=== PATIENT | female | born 1960 | race Caucasian/White ===

== ENCOUNTER 2017-01-10 20:05 | Observation (INO) | payer MEDICAID ==
[~2017-01-10] VITALS: Ht 165.1 cm; Wt 65.8 kg
[~2017-01-10 20:05] MED LIST: ACTOS30 MG PO; ALBUTEROL-200 PUFFS/ IH; AMLO5TAB PO; CIPRO 500MG TA500 MG PO; CYCLOBENZAPRINE10 MG PO; FENTANYL 1100 MCG/E1 TD; FENTANYL TR75 MCG/HR TD; FLEXERIL10 MG PO; FLOMAX 0.4MG C0.4 MG PO; HUMALOG100 U/ML SC; JANUVIA100 MG PO; KEFLEX 500MG.500 MG PO; LANTUS INS100 UNITS/ SC; MEDROL 4MG. DOSE4 MG PO; METFORMIN1000 MG PO; MIRALAX17 GM/PACK PO; NIASPAN1000 MG PO; NOVOLOG100 U/ML SC; OXYCODONE15 MG PO; PAROXETINE40 MG PO; PERCOCET 10 MG1 EACH PO; PHENERGAN 25MG.25 M1 PO; PREDNISONE50 MG PO; PREGABALIN 50MG50 MG PO; REGLAN 10 MG TA10 MG PO; SIMVASTATIN80 MG PO; TESSALON PERLE100 MG PO; ZOCOR40 MG PO; ZOFRAN4 MG PO
[2017-01-10 20:11] VITALS: BP 152/76
[2017-01-10 20:30] LABS: LYMPH # 2.8 K/mm3 (0.7-4.5); LYMPH % 37.7 % (10-50.0)
[2017-01-10 20:32] LABS: HEMOGLOBIN 14.2 g/dL (12.2-16.2)
[2017-01-10 20:38] LABS: AMPHETAMINES/METAMPHETAMINES NEGATIVE ng/mL (<1000)
--- NOTE | 2017-01-10 21:16 | Emergency Room Report ---
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 N Clinical Suspician of Infection? N Mental Status: 2 - Mildly Altered Sepsis Risk:Low Sepsis Risk Have you (or family members/close friends) recently traveled outside the [place]? N If Yes, where/when: Have you had exposure to infectious disease within the past month? N TB? Other? Specify: Comment History of slipped from the patient's daughter and boyfriend and minimally from the patient. Her boyfriend states that for 3 days she has had a pain in her side and pain with urinating. He says that today she went to lay down and 3 hours later he checked on her and could not arouse her and called 911 immediately. She was given Narcan during transport and her mental status improved. She again became drowsy in the emergency room and required 2 more milligrams of Narcan prior to my evaluation. Her drug screen has already been resulted and shows opiates and cocaine. Her boyfriend states that she is not currently on any prescription pain medication although she has been on Percocet/oxycodone past. He has never seen her used cocaine and does not know of any street drug abuse. 9:30 PM: The patient is drowsy and yawning, but able answer some questions. She says that she is not on any prescription pain medications, but will occasionally take a pain pill that she obtains off of the street when she is hurting. She says that today she is hurting in her suprapubic area and has difficulty urinating, pain with urination. She says she has a history of kidney infections and kidney stones. She does admit to using cocaine as well. ALLERGIES Coded Allergies: acetaminophen (From LORTAB) (10/18/15) hydrocodone (From LORTAB) (10/18/15) Home Medications Reported Medications Amlodipine Besylate (Amlodipine) 5 MG PO DAILY PIOGLITAZONE HCL (Actos 30MG) 30 MG PO DAILY-DM Niacin (Niaspan) 1,000 MG PO DAILY PAROXETINE HCL (Paroxetine) 40 MG PO DAILY Insulin Glargine (Lantus Insulin Vial) 75 UNITS SC DAILY Simvastatin (Zocor) 40 MG PO QHS METFORMIN HCL (Metformin) 1,000 MG PO DAILY Insulin Lispro, Recombinant (Humalog 100 UNITS/ML 10ML) 0 UNITS SC ACHS Pregabalin (Pregabalin 50MG Capsule) 50 MG PO BID #60 History Medical History General CAD? No Angina: No [place]: Yes Hypertension? No Hyperlipidemia? Yes CHF? No DVT? No PE? No COPD? Yes Asthma? Yes Anemia? Yes GERD? No Gastric ulcers? No GI Bleed? No Hernia? Yes Thyroid Problems? No Hypothyroidism? No CVA? Yes Seizures? No Diabetes? Yes Insulin Dependent: Yes Insulin Pump: No Home FSBS? No Renal Insuffiency? No End Stage Renal Disease? No UTI? Yes Stones? No BPH? No GB Disease: Yes Nephritic Syndrome? No Asplenia? No Hepatitis? No Sickle Cell Disease? No Arthritis? Yes Migraines? Yes Cataracts? No Glaucoma? No MRSA? Yes HIV? No TB? No Anxiety? No Depression? 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 Hx LMP menopause Family History Family Hx Diabetes Yes CAD Yes Hypertension Yes Hyperlipidemia Yes Cancer Yes TB No Social History Smoking Hx Smoker: Current Every Day Smoker Tobacco: Yes Type Cigarettes Packs/day < 1 Pack Alcohol Alcohol: No Review of Systems All Other Systems Reviewed and Negative (unobtainable due to AMS) Physical Exam Vital Signs Vital Signs Date Time Temp Pulse Resp B/P Pulse O2 O2 Flow FiO2 Ox Delivery Rate 01/11 0012 98.8 87 20 105/61 94 2 01/10 2335 98.8 88 20 147/59 92 01/10 2228 87 20 115/63 97 2 01/10 2147 96 20 157/77 96 01/10 2113 96 20 184/88 98 01/10 2110 99.1 97 20 137/99 97 2 01/10 2055 100 20 104/77 98 2 01/10 2050 98.2 95 20 109/58 98 2 01/10 2041 81 20 116/71 96 01/10 2011 98.2 84 20 152/76 95 - WBC >12,000 or <4,000 or 10% bands? 2 or more SIRS Criteria Met? B/P:184/ MAP:101 Creatinine >2.0? UA output<0.5ml/kg/hr for 2 hrs? Platelet count >100,000? Lactate >2.0mmol/1? INR >1.2 or PTT > than 60 sec? Evidence of Organ Dysfunction? Provider documented clinical suspician of infection? N Sepsis Criteria Count: 1 Sepsis Risk: Low Sepsis Risk General Appearance drowsy, yawning, restless Eye Exam - bilateral eye normal exam, bilateral eye PERRL, bilateral eye EOMI Ear, Nose, Throat hearing grossly normal, normal ENT inspection Neck normal inspection, non-tender, supple, full range of motion Respiratory Status Yes: trachea midline, chest symmetrical, non tender chest. No: respiratory distress. Lung Sounds bilateral: normal breath sounds, lungs clear. 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 No Saravanan was queried for this patient? Yes Reference #: [id number] Comment 9 rxs. last rx 75 oxycodone 5mg on 04/22/16. Results/Orders Laboratory Tests 01/10/17 2010: Opiates Screen POSITIVE H, Urine Methadone Screen NEGATIVE, Barbiturates NEGATIVE, Phencyclidine Screen NEGATIVE, Amphetamines Screen NEGATIVE, Benzodiazepines Screen NEGATIVE, Cocaine Screen POSITIVE H, Marijuana (THC) Screen NEGATIVE, Urine Color YELLOW, Urine Appearance CLEAR, Urine pH 6.5, Ur Specific [place] 1.010, Urine Protein NEGATIVE, Urine Ketones NEGATIVE, Urine Blood 3+ H, Urine Nitrate NEGATIVE, Urine Bilirubin NEGATIVE, Urine Urobilinogen 0.2, Ur Leukocyte Esterase NEGATIVE, Urine RBC 10-20, Ur Squamous Epith Cells 3-5, Amorphous Sediment TRACE, Urine Glucose NEGATIVE 01/10/171999: Creatine Kinase 212 H, CK-MB (CK-2) Rel Index 1.4, CK and CKMB Interp 2.9, Troponin I 0.02 01/10/171999: Sodium 141, Potassium 3.5, Chloride 106, Carbon Dioxide 28, BUN 11, Creatinine 0.8, Estimated Creat Clear 92, Estimated GFR (MDRD) 75, Glucose 118 H, Calcium 9.2, Total Bilirubin 0.4, AST 25, ALT 32, Alkaline Phosphatase 98, Total Protein 6.9, Albumin 3.3 L, Globulin 3.6 H, Albumin/Globulin Ratio 0.9 L, WBC 7.4, RBC 4.32, Hgb 14.2, Hct 39.7, MCV 91.9, RDW 12.6, Plt Count 164, MPV 7.0 L, Gran % 54.7, Gran # 4.0, Lymphocytes % 37.7, Monocytes % 5.4, Eosinophils % 1.6, Basophils % 0.7, Lymphocytes # 2.8, Monocytes # 0.4, Eosinophils # 0.1, Basophils # 0.1, PUBS MCHC 35.7 H, MCH 32.8 H, Salicylates 4.3, Acetaminophen 0 L Current Medication Orders Sig/Haylee Start time Last Medication Dose Route Stop Time Status Admin Diagnostic Test (Pha) 1 EACH W/MEALS&HS 01/11 07 UNV FS 03/12 0659 Insulin Human [rDNA See Dose W/MEALS&HS 01/11 07 UNV origin] Insts (1) SC Nicotine 21 MG DAILYP PRN 01/11 0005 UNV TD Ondansetron HCl 4 MG Q6HP PRN 01/11 0005 UNV IV Sodium Chloride 1,000 ML .Q8H 01/11 0005 UNV IV Sodium Chloride 10 ML PRN PRN 01/11 0005 UNV IV Naloxone HCl 2 MG PRN PRN 01/11 0000 UNV IV Ketorolac 30 MG ONCE ONE 01/10 2215 DC Tromethamine IV 01/11 2216 Naloxone HCl 2 MG ONCE ONE 01/10 2100 DC 01/10 IV 01/10 Naloxone HCl 2 MG 01/10 2045 UNi IV Naloxone HCl 0 .STK-MED ONE 01/10 2043 DC .ROUTE Sodium Chloride 10 ML PRN PRN 01/10 2030 AC 01/10 IV 01/11 Dose Instructions: (1)Insulin Human [rDNA origin]: SEE ADMIN CRITERIA FOR LOW INTENSITY SS Orders Procedure Date/time Status DIET-NOTHING BY MOUTH 01/12 B Active CODE STATUS 01/11 0700 Active ADMIT PATIENT 01/11 UNK Active PULSE OXIMETRY REQUEST 01/11 UNK Active OXYGEN REQUEST 01/[address] ABD/PELVIS REQ 01/11 UNK Active VITAL SIGNS 01/11 UNK Active 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 NURSE BARBI HOSE ORDER 01/11 UNK Active IV SALINE LOCK 01/11 UNK Active PATIENT ACTIVITY ORDER 01/11 UNK Active Urine, Strain 01/11 UNK Active Neuro Status, Assess 01/11 UNK Complete Decision to admit 01/10 2340 Active KUB (SINGLE VIEW) 01/11 2212 Active CARDIAC ENZYMES 01/11 2132 Complete ELECTROCARDIOGRAM REQUEST 01/10 2131 Active URINALYSIS/COMPLETE 01/10 2131 Complete IV SALINE LOCK 01/11 2016 Active SALICYLATE 01/11 2016 Complete DRUG ABUSE SCREEN (TRIAGE) 01/11 2016 Complete CBC WITH AUTO DIFF 01/11 2016 Complete CHEM 12 PROFILE 01/11 2016 Complete Acetaminophen 01/11 2016 Complete 12 LEAD EKG-BESSON (INITIAL) 01/10 UNK Active CM/EKG CM/EKG Comments EKG interpreted by Hong Shi MD: Rhythm: sinus Rate: 94 [place]: normal Ectopy: none Conduction: normal ST Segment Changes: none T Wave Changes: none Q Waves: none No evidence of acute ischemia or injury XRAY/CT/US XRAY/CT/US XRAY abdomen Comment X-ray interpreted by Hong Shi M.D.: 3 circular calcifications above the LEFT SI joint, possible ureteral calculi Progress - CT scanner is non-operational at this time until tomorrow. I suspect ureteral calculus based on symptoms, KUB, and hematuria. 11:15 PM: I have discussed the case with Dr. Fowler for Dr. Jaeger who agrees to admit the patient to the hospital. We discussed the patient's clinical information, including history, exam, laboratory and radiology results and ED course. Per hospital procedure, I will write temporary bridge inpatient orders on the patient. Specific orders requested by the admitting physician: Hydration, telemetry. Departure Departure Disposition Still a Patient Clinical Impression Primary Impression: Accidental drug overdose Qualifiers: Encounter type: initial encounter Qualified Code: T50.901A - Poisoning by unspecified drugs, medicaments and biological substances, accidental (unintentional), initial encounter Secondary Impressions: Left ureteral calculus Condition STABLE Referrals ELPIDIO THOMAS (Family) ED Critical Care Critical Care Yes Time spent 30-74 min Vital system(s) involved: Central Nervous System I was present at bedside for Coordinating pt's care, Interpreting EKGs/Strips , During my initial exam, Reviewing lab results, Reviewing old records, Discussing pt condition, For re-examinations, Examining radiographs at 0045
[2017-01-10 21:48] LABS: URINE BILIRUBIN - DIPSTICK NEGATIVE (NEG); URINE BLOOD 3+ (NEG)
[2017-01-11] VITALS (9 sets, daily range): BP systolic 106–147; BP diastolic 60–83
[2017-01-11] MEDS ORDERED: JANUVIA100 MG PO (00:57)
[2017-01-11] MEDS ORDERED: ASPIRIN 81MG TA81 MG PO (00:58)
[2017-01-11] MEDS ORDERED: AMLODIPINE5 M1 PO (01:09)
[2017-01-11] MEDS ORDERED: SIMVASTATIN10 MG PO (01:12)
[2017-01-11] MEDS ORDERED: CARVEDILOL6.25 M1 PO (01:18)
[2017-01-11] MEDS ORDERED: ATORVASTATIN CA80 MG PO (01:19)
[2017-01-11] MEDS ORDERED: NAPROSYN500 M1 PO (01:20)
[2017-01-11] MEDS ORDERED: METOCLOPRAMIDE10 M2 PO (01:21)
[2017-01-11] MEDS ORDERED: TIZANIDINE HCL 44 MG NG (01:22)
[2017-01-11] MEDS ORDERED: METHOCARBAMOL500 MG PO (01:23)
[2017-01-11] MEDS ORDERED: APAP/OXYCODONE1 TA1 PO (01:24)
--- NOTE | 2017-01-11 07:36 | HISTORY AND PHYSICAL REPORT ---
Demographics: Admit date: 01/10/17 Chief complaint: Mental status change PRIMARY DIAGNOSIS: DRUG OD; LT URETERAL CALCULUS Allergies: Coded Allergies: acetaminophen (From LORTAB) (10/18/15) hydrocodone (From LORTAB) (10/18/15) History of present illness: History of present illness: 56-year-old white female with history of polysubstance abuse who was brought to the emergency department by her boyfriend because "she wouldn't wake up." She was given Narcan in route by EMS which improved her situation temporarily but then received another dose of Narcan in the emergency department. This improved her breathing situation but she was still very somnolent but arousable to deep tactile stimuli and verbal stimuli. Workup in the ER included a urine sample that showed opioids and cocaine, and labs that showed essentially normal metabolic testing except for mild hyperglycemia. KUB showed evidence of stone disease in the RIGHT urinary tract and she had hematuria. She was admitted to hospital for monitoring after polysubstance drug overdose, and further evaluation of her urinary tract issues. This morning she is more awake. Overnight we have had to place a Bess catheter for urinary retention and 1.5 L so far has been drained from her bladder. She continues to have mild abdominal pain but has had no vomiting. Past medical history: Family HX Diabetes Yes CAD Yes Hypertension Yes Hyperlipidemia Yes Cancer Yes TB No Immunization HX DT/Tetanus Unknown Flu THIS YR Pneumonia Unknown TB Test in last year No General CAD? No Angina: No [place]: Yes Hypertension? No Hyperlipidemia? Yes CHF? No DVT? No PE? No COPD? Yes Asthma? Yes Anemia? Yes GERD? No Gastric ulcers? No GI Bleed? No Hernia? Yes Thyroid Problems? No Hypothyroidism? No CVA? Yes Seizures? No Diabetes? Yes Insulin Dependent: Yes Insulin Pump: No Home FSBS? No Renal Insuffiency? No UTI? Yes Stones? No BPH? No GB Disease: Yes Nephritic Syndrome? No Asplenia? No Hepatitis? No Sickle Cell Disease? No Arthritis? Yes Migraines? Yes Cataracts? No Glaucoma? No MRSA? Yes HIV? No TB? No Anxiety? No Depression? 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 Additional hx: NERVE BURNT ON SPINE SEP 31 Past Surgical HX Previous Surgery?Y Gallbladd SHYANNE DISCECTOMY FOR L4 HEART CATH 2007 Current home meds: Reported Medications Sitagliptin Phosphate (Januvia 100MG) 100 MG PO DAILY #30 ASPIRIN (Aspirin) 81 MG PO DAILY Amlodipine Besylate (Amlodipine) 5 MG PO DAILY Simvastatin 10 MG PO NIGHT ONLY Carvedilol 6.25 MG PO BID #60 Atorvastatin Calcium 80 MG PO NIGHT ONLY #30 Naproxen (Naprosyn 500MG Tab) 500 MG PO BID METOCLOPRAMIDE HCL (Metoclopramide 10MG) 10 MG PO ACHS TIZANIDINE HCL (Tizanidine Hcl 4 Mg Tablet) 4 MG NG DAILY METHOCARBAMOL (Methocarbamol) 750 MG PO TID PRN MUSCLE SPASMS OXYCODONE 5MG/[id number] (Oxycodone-Acetaminophen 5-325) 1 TAB PO BID PRN POST-OP PAIN PAROXETINE HCL (Paroxetine) 40 MG PO DAILY Insulin Glargine (Lantus Insulin Vial) 75 UNITS SC DAILY Insulin Lispro, Recombinant (Humalog 100 UNITS/ML 10ML) 0 UNITS SC ACHS Pregabalin (Pregabalin 50MG Capsule) 50 MG PO BID #60 Social Hx: Smoking HX Tobacco No Type Cigarettes Packs/day < 1 PACK Alcohol Alcohol: No Hx of Drug Use Drug Use? Yes Drug(s) of Choice: cocaine, denies IV drugs, multiple by mouth medications Patien't marital status is single Patient's support system is poor Review of systems: Constitutional malaise, weakness. Respiratory No: no symptoms reported. Cardiovascular No no symptoms reported Gastrointestinal/Abdominal see HPI Genitourinary see HPI. Musculoskeletal No: no symptoms reported. Neurological Yes: see HPI. Exam: Lab data for last 24 hours: Laboratory Tests 01/11/17 0631: POC Glucose 101 01/10/17 2010: Opiates Screen POSITIVE H, Urine Methadone Screen NEGATIVE, Barbiturates NEGATIVE, Phencyclidine Screen NEGATIVE, Amphetamines Screen NEGATIVE, Benzodiazepines Screen NEGATIVE, Cocaine Screen POSITIVE H, Marijuana (THC) Screen NEGATIVE, Urine Color YELLOW, Urine Appearance CLEAR, Urine pH 6.5, Ur Specific [place] 1.010, Urine Protein NEGATIVE, Urine Ketones NEGATIVE, Urine Blood 3+ H, Urine Nitrate NEGATIVE, Urine Bilirubin NEGATIVE, Urine Urobilinogen 0.2, Ur Leukocyte Esterase NEGATIVE, Urine RBC 10-20, Ur Squamous Epith Cells 3-5, Amorphous Sediment TRACE, Urine Glucose NEGATIVE 01/10/171999: Creatine Kinase 212 H, CK-MB (CK-2) Rel Index 1.4, CK and CKMB Interp 2.9, Troponin I 0.02 01/10/171999: Sodium 141, Potassium 3.5, Chloride 106, Carbon Dioxide 28, BUN 11, Creatinine 0.8, Estimated Creat Clear 92, Estimated GFR (MDRD) 75, Glucose 118 H, Calcium 9.2, Total Bilirubin 0.4, AST 25, ALT 32, Alkaline Phosphatase 98, Total Protein 6.9, Albumin 3.3 L, Globulin 3.6 H, Albumin/Globulin Ratio 0.9 L, WBC 7.4, RBC 4.32, Hgb 14.2, Hct 39.7, MCV 91.9, RDW 12.6, Plt Count 164, MPV 7.0 L, Gran % 54.7, Gran # 4.0, Lymphocytes % 37.7, Monocytes % 5.4, Eosinophils % 1.6, Basophils % 0.7, Lymphocytes # 2.8, Monocytes # 0.4, Eosinophils # 0.1, Basophils # 0.1, PUBS MCHC 35.7 H, MCH 32.8 H, Salicylates 4.3, Acetaminophen 0 L Admission vital signs: 1ST Vital Signs Result Date Time Pulse Ox 95 01/10 2011 B/P 152/76 01/10 2011 Temp 98.2 01/10 2011 Pulse 84 01/10 2011 Resp 20 01/10 2011 O2 Flow Rate 2 01/10 2050 O2 Delivery OXYGEN 01/11 0046 Additional information: Patient is sleeping but arousable. Oriented 2, but a little fuzzy about the date but able to be reoriented. Cranial nerves intact. Lungs clear bilaterally, heart rate regular. Abdomen is soft, minimal bilateral lower quadrant tenderness without rebound or guarding or flank pain. She has no edema or clubbing. No stigmata of IV drug use or skin breakdown, wounds or trauma. Plan: Problem List 1. Accidental drug overdose 2. Left ureteral calculus Plan: Patient with polysubstance abuse. IV fluids. Cardiac monitoring. Electrocardiogram monitoring. Ativan for agitation or any kind of seizure activity as ordered. Urinary retention issues are noted. Begin antibiotic therapy, and CT scan available will scan for stone protocol. Clear liquid diet, advance as tolerated. at 0707
--- NOTE | 2017-01-11 08:29 | RADIOLOGY REPORT PS360 ---
KUB (SINGLE VIEW) Ordering Physician: Manny Jaeger MD Patient Age: 56 years: Female HISTORY: lower abdo and flank pain, hematuriahematuria TECHNIQUE: SupineAbdomen KUB COMPARISON. Prior KUB 03/21/2010 & more important CT abdomen October 2015 FINDINGS . Nonspecific bowel gas pattern.No significant bowel dilatation or obstruction Small bowel: Moderate gas throughout the proximal small bowel left abdomen. Large bowel.: Moderate stool and gas most evident at the right colon with minimal stool and gas throughout the remainder the colon. 3 small round calcifications in a row seen just superior to left SI joint, to left at L5. Largest of these measures nearly 3.5 mm diameter transverse; & the other only very incrementally smaller.. Although These were not seen on a previous 2009 KUB. They WERE present on the October 2015 CT shown to be phleboliths on that exam residing anterior to the tiny normal caliber left ureter.. No ureteral calculi or renal calculi were seen on that last year CT either.. Only some intermediate density most likely benign cystsat right kidney, which would benefit from follow-up CT when available if there is history of hematuria. Urinary bladder appears moderately distended. Clips right upper quadrant from cholecystectomy. Osseous: Incidental note prominent degenerative facet changes L5/S1 bilateral [right -------IMPRESSION: 1. Nonspecific bowel gas pattern Generous gas throughout the small bowel left abdomen but no bowel dilatation 2. There are 3 small round calcifications just above the left SI joint observed. These are compatible with PHLEBOLITHS based on prior CT October 2015.. They were present on that prior CT study and more clearly anterior to the normal size left ureter. Thus do NOT appear to be ureteral calculi No renal or ureteral calculi were seen on last years CT either
--- NOTE | 2017-01-11 08:56 | PHARMACY CLINIC NOTE ---
Patient Demographics Patient Demographics Admission date: 01/11/17 Date: 01/11/17 Time: 0855 Allergies Coded Allergies: acetaminophen (From LORTAB) (10/18/15) hydrocodone (From LORTAB) (10/18/15) HEIGHT- FT: 5 IN: 5.00 K.800 VTE General Information Labs: Laboratory Tests 01/11 2000 Hematology Hgb (12.2 - 16.2 g/dL) 14.2 Hct (37.0 - 47.0 %) 39.7 Plt Count (142 - 424 K/mm3) 164 Disclaimer The following section includes nursing documentation that has been pulled in for pharmacy review. Patient's VTE score: 6 Patient's VTE Risk: MOD RISK Clinical trial participant? No VTE prophylaxis NQF [id number] VTE prophylaxis ordered? Yes Type of prophylaxis/treatment: BARBI at 0856
[2017-01-11 17:29] LABS: URINE BILIRUBIN - DIPSTICK NEGATIVE (NEG); URINE BLOOD 3+ (NEG)
--- NOTE | 2017-01-11 23:13 | RADIOLOGY REPORT PS360 ---
CT ABD PELVIS W/ CONTRAST Ordering Physician: Manny Fowler MD Patient Age: 56 years: Female HISTORY: URINARY RETENTIONabdominal pain TECHNIQUE: Helical CT scanning performed the abdomen and pelvis following 75 cc [id number]. Scanning performed 60 seconds post contrast as well as 10 minute delayed to further evaluate the collecting systems, ureters and bladder FINDINGS There is a previous CT abdomen pelvis from October 2015 uses comparison Lung bases with no acute findings. Small focal pleural-based density at the posterior aspect of the posterior sulcus is measures 7.5 mm. Most likely area area of postinflammatory scarring and/or atelectasis but was not seen previously would benefit from follow-up.. There are other areas of linear atelectasis at the posterior sulcus. Borderline airway thickening of floor lobes bilateral. Abdomen. Liver.:. Scattered granulomatous calcifications but no significant mass nor worrisome focal lesion. There is a low-density area adjacent to the fissure ligamentum teres./falciform ligament insertion. Most likely focal fatty change here. Likely is more evident today postcontrast. Commonly occurs here. Gallbladder is been removed. Mild biliary ductal dilatation most likely reflecting postcholecystectomy changes. This includes some mild dilatation of the hepatic biliary radicles of this warrants correlation with serum bilirubin. I believe is similar to previous studies but more evident again postcontrast. Spleen. Normal size. .. Less and 12 cm lengthGranulomatous calcifications Pancreas. Unremarkable. Adrenals satisfactory. TRACT KIDNEYS. Normal enhancement bilaterally with scattered small benign cyst right> left kidney... Not of significant concern and fairly stable since prior studies. Can be followed. There are some cyst upper normal in density but I believe but overall fairly stable since 2016, but much better seen today postcontrast. No hydronephrosis. No urinary tract calculi. Minimal scarring upper pole left kidney. Ureters: appear normal course & caliber bilaterally. No obstructive uropathy or discrete ureteral calculi evident. There are numerous scattered very faint & tiny tiny calcifications adjacent to the course of the left left pelvic ureter but these appear to be stable since prior noncontrast studies 2015 and 2014-reflecting mesenteric calcifications and phleboliths adjacent to the ureter. As discussed on yesterday's study the small 2 or 3 calcifications just above Left SI joint are phleboliths. -Urinary Bladder. Bess catheter in place. Bladder upper normal wall thickness. Generous amount of air in the bladder.- Presumably iatrogenic from the Bess catheter placement but surprised the amount of air in it remains if this catheter was placed an yesterday.. I question slight hazy appearance overlying the posterior left aspect of urinary bladder. Requires correlation to urinalysis to exclude urinary tract infection. . Pelvis. Previous hysterectomy. No Adnexal masses. GI TRACT. Starting distally.-Question mild wall thickening angle verge, but appearance to studies dating back to 2014 thus may be long-standing feature. Upper normal wall thickness perirectal fascial plane is also some thousand 15. Large bowel. Moderate stool right, transverse and descending colon.. There is some liquid stool seen at the cecum otherwise solid stool throughout Diverticulosis most pronounced throughout sigmoid colon with upper normal wall thickness in this region. Possibly developing colitis No focal definitive inflamed diverticuli,. However the hazy appearance just posterior to the left bladder is just below the mildly thickened sigmoid colon and can be reflection of colitis. Nonspecific. Subtle. Small bowel: Increased fluid and slight dilatation small bowel loops most evident left abdomen. Scattered moderate air-fluid level. May reflect mild ileus. 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 Gas-filled small bowel loop measuring nearly nearly 2.5 cm coronal image 25.. . Generous caliber fluid filled secondary portion of duodenum measuring up to 3 cm also noted The terminal ileum and appendix appear within normal limits... Unremarkable Osseous structures. There is again irregularity at the inferior aspect of L4 vertebral body endplate. Likely related to Schmorl's node formation but cannot exclude old process here. L4/5 with generous disc bulge and facet hypertrophy which does narrow the spinal canal with developing spinal stenosis at this level. L5/S1. Generous central disc bulge most evident to the right of midline. With facet hypertrophy features stable since prior studies. . IMPRESSION: 1. No urinary tract obstruction. No renal nor ureteral calculi. No significant renal mass. Only scattered benign-appearing cyst kidneys- no worrisome mass. ( If hematuria persists unexplained suggest follow-up CT with contrast protocol in 6 months 2. Bess catheter in place. Generous wall thickness bladder. Prominent air bladder presumably iatrogenic 3. Otherwise with only note/question subtle hazy appearance fat posterior to the left aspect urinary bladder &, just below the sigmoid colon. Minor feature of Questionable significance But noted Cystitis considered, although mild adjacent colitis in the redundant sigmoid colon could yield this appearance. 4. Diverticulosis most pronounced in sigmoid colon. No discrete inflamed diverticuli. Mild wall thickening sigmoid possibly could reflect developing colitis. Correlation required 5. Also note Small bowel with generous fluid & gas here at the left abdomen. May reflect mild ileus. Nonspecific. Unimpressive. Less likely early enteritis. 6. Notable Degenerative changes L4/5 L5/S1 . Developing spinal stenosis L4/5 7. Small 7.5 mm pleural-based nodular density right lung base/ posterior sulcus, most likely related to atelectasis & postinflammatory scarring.
[2017-01-12 04:05] VITALS: BP 141/88; BP 144/83
[2017-01-12 06:58] LABS: HEMOGLOBIN 12.9 g/dL (12.2-16.2); LYMPH # 1.9 K/mm3 (0.7-4.5); LYMPH % 32.4 % (10-50.0)
--- NOTE | 2017-01-12 07:51 | ACUTE CARE PROGRESS NOTE (QUA) ---
Progress Notes Subjective Date 01/12/17 Time 0750 Note She slept well, is awake, tolerating room air well with normal oxygen saturations and respiratory rate. Tolerating clear liquids well. On exam she is alert, lungs are clear, oriented x3, heart rate regular, abdomen soft, Bess catheter draining clear yellow urine per Objective Findings Last VS-Temp:98.0 B/P:141/88 Pulse:75 Resp:18 SaO2:95 ROOM AIR Last weight lbs:145 oz:1 K.800 Method:Bed Scales Assessment/Plan Problem List 1. Accidental drug overdose Qualifiers: Encounter type: initial encounter Qualified Code: T50.901A - Poisoning by unspecified drugs, medicaments and biological substances, accidental ( unintentional), initial encounter 2. Left ureteral calculus Patient condition Improving Plan: continue current care, initiate discharge planning if patient can urinate on her own and eat her diet This inpt stay is expected to cross 2 MNs from start of care No at 0750
[2017-01-12 08:32] VITALS: BP 125/70
[2017-01-12 08:45] VITALS: BP 125/70
[2017-01-12] MEDS ORDERED: OMNICEF 300 MG300 MG PO (11:39)
--- NOTE | 2017-01-12 11:42 | DISCHARGE SUMMARY STANDARD ---
Demographics Admit date: 01/10/17 Discharge date: 01/12/17 History of present illness History of present illness 56-year-old white female with history of polysubstance abuse who was brought to the emergency department by her boyfriend because "she wouldn't wake up." She was given Narcan in route by EMS which improved her situation temporarily but then received another dose of Narcan in the emergency department. This improved her breathing situation but she was still very somnolent but arousable to deep tactile stimuli and verbal stimuli. Workup in the ER included a urine sample that showed opioids and cocaine, and labs that showed essentially normal metabolic testing except for mild hyperglycemia. KUB showed evidence of stone disease in the RIGHT urinary tract and she had hematuria. She was admitted to hospital for monitoring after polysubstance drug overdose, and further evaluation of her urinary tract issues. This morning she is more awake. Overnight we have had to place a Bess catheter for urinary retention and 1.5 L so far has been drained from her bladder. She continues to have mild abdominal pain but has had no vomiting. Hospital Course Hospital Course: Patient was admitted as noted in my history of present illness. She progressed very nicely over the next 24 hours and was able to be advanced from a clear liquid diet to a regular diet with no nausea or vomiting. Narcotics, muscle relaxers and benzodiazepines were held. Patient improved her mental status standpoint. Interestingly denied that she was "a regular cocaine user" but reports 2 or 3 usages of cocaine in the past 2 weeks. She improved this morning, Bess catheter was removed and urinated well without problems. Urine culture grew no organisms. She'll be discharged home, I have instructed her that she needs to avoid pain medication or muscle relaxers because of her issues with mental status change. She can continue her actual medications for medical problems, and I prescribed cefdinir 300 b.i.d. for 5 days to cover possible infected stone versus sequela of catheter insertion. She will followup with her primary physician in the next week or so. Discharge diagnoses Problem List 1. Accidental drug overdose 2. Left ureteral calculus Medications Medications: Discharge meds are as noted. Follow up Follow up in office in: 7 DAYS with: OTHER at [id number]
[2017-01-12 12:42] VITALS: BP 153/84
== END 2017-01-12 12:30 | disposition home or self-care (01) ==
LOC: ER 20:05 → 2ND 23:31
PROVIDERS: Emergency Medicine; Internal Medicine Adolescent Medicine
DX: T40.601A Poisoning by unspecified narcotics, accidental (unintentional), initial encounter (principal); T40.5X1A Poisoning by cocaine, accidental (unintentional), initial encounter; R40.1 Stupor; N20.1 Calculus of ureter; E11.8 Type 2 diabetes mellitus with unspecified complications
CPT/HCPCS: G0378; J2310; Q9967